=== PATIENT | female | born 1995 | race Two or more races ===

== ENCOUNTER 2024-03-30 05:55 | Day surgery (SDC) | payer MEDICAID ==
[2024-03-28 15:11] LABS: Basophils # (auto) 0.1 10 ^3/uL (0-0.2); Basophils % (auto) 0.4 % (0.0-2.0); Eosinophils # (auto) 0.2 10 ^3/uL (0-0.8); Eosinophils % (auto) 1.7 % (0.0-7.0); Hematocrit 41.1 % (36.0-46.0); Hemoglobin 13.7 g/dL (12.2-16.2); Lymphocytes # (auto) 2.3 10 ^3/uL (0.4-5.4); Mean Corpuscular Hemoglobin 30.9 pg (28.0-32.0); Mean Corpuscular Hgb Conc. 33.3 g/dL (32.0-36.0); Mean Corpuscular Volume 92.8 fL (80.0-100.0); Monocytes # (auto) 0.8 10 ^3/uL (0-1.3); Monocytes % (auto) 6.5 % (0.0-12.0); Neutrophils # (auto) 8.8 10 ^3/uL (1.6-8.6); Neutrophils % (auto) 72.4 % (37.0-80.0); Nucleated Red Blood Cells % 0.1 %; Red Blood Cells 4.43 10^6/uL (4.0-5.20); Red Cell Distribution Width 13.5 % (11.8-14.3); White Blood Cell 12.1 10^3/uL (4.4-10.8)
[2024-03-28 15:24] LABS: Urine Bacteria FEW /hpf (None Seen); Urine Blood 1+ /uL (Negative); Urine Clarity Ex.Turbid (Clear); Urine Color Light-Orange (Yellow); Urine Hyaline Cast FEW /lpf (0 - 2); Urine Mucus FEW (None Seen); Urine Protein, UAD 1+ (Negative); Urine Specific Gravity 1.023 (1.001-1.035); Urine Urobilinogen Normal (Negative); Urine WBC 126 /hpf (0 - 5); Urine WBC Clumps PRESENT /hpf (None Seen)
[2024-03-28 15:27] LABS: INR 1.03 (0.9-1.15); Partial Thromboplastin Time 29.3 SEC (24.5-34.5); Prothrombin Time 10.9 sec (9.3-11.8)
[2024-03-28 15:38] LABS: Alanine Aminotransferase 14 U/L (7-40); Albumin 4.8 g/dL (3.2-4.8); Alkaline Phosphatase 67 U/L (46-116); Anion Gap 6 (5-15); Aspartate Aminotransferase 9 U/L (13-40); BUN/Creatinine Ratio 11.3 (10.0-20.0); Bilirubin, Total 0.6 mg/dL (0.2-1.0); Blood Urea Nitrogen 8 mg/dL (9-23); Calcium 10.4 mg/dL (8.7-10.4); Carbon Dioxide 27 mmol/L (20-30); Chloride 106 mmol/L (98-107); Glucose 86 mg/dL (74-106); Potassium 4.6 mmol/L (3.5-5.1); Sodium 139 mmol/L (136-145); Total Protein 7.6 g/dL (5.7-8.2)
[~2024-03-30] VITALS: Ht 165.1 cm; Wt 85.3 kg
[2024-03-30] MEDS: BUPIVACAINE HCL 0.25% P/F 10 ML VIAL ONE (06:42)
[2024-03-30] MEDS: LIDOCAINE W/ EPINEPHRINE 1% 20ML VIAL ONE (06:42)
[2024-03-30] MEDS: ceFAZolin 1GM/50ML 50 ML IV ONE (06:48)
[2024-03-30] MEDS ORDERED: fentaNYL CITRATE 100 MCG/2 ML VL ONE (06:56)
[2024-03-30] MEDS ORDERED: PROPOFOL 10 MG/ML 20 ML IV ONE (06:56)
[2024-03-30] MEDS: SUCCINYLCHOLINE CHLORIDE 20 MG/ML 10ML VIAL IV ONE (07:07)
[2024-03-30] MEDS ORDERED: ePHEDrine SULFATE 50 MG/ML AMP ONE (07:35)
[2024-03-30] MEDS ORDERED: DexAMETHasone SOD PHOS 10MG/1ML VIAL INJ ONE (07:37)
[2024-03-30] MEDS ORDERED: ONDANSETRON HCL 4 MG/2 ML VIAL ONE ×2 (07:37→08:54)
[2024-03-30] MEDS ORDERED: MEPERIDINE HCL (50 MG/ML) 1 ML VIAL ONE (07:42)
[2024-03-30 08:22] VITALS: PULSE 77; RESP 12; TEMP 97.5; O2SAT 88
[2024-03-30] MEDS ORDERED: HYDROmorphone HCL 2 MG/ML VL/or syr IV PRN (08:30)
[2024-03-30] MEDS ORDERED: MEPERIDINE HCL (25 MG/ML) 1ML VIAL IV PRN (08:30)
[2024-03-30 08:42] VITALS: O2SAT 96
[2024-03-30] MEDS: ONDANSETRON HCL 4 MG/2 ML VIAL IV ONE (08:50)
[2024-03-30 09:20] VITALS: BP 96/75; PULSE 74; RESP 12; O2SAT 96
== END 2024-03-30 09:25 | disposition home or self-care (01) ==
LOC: SUR 05:55
PROVIDERS: ATTEND Surgery
DX: L72.3 Sebaceous cyst (principal); E66.01 Morbid (severe) obesity due to excess calories; F17.210 Nicotine dependence, cigarettes, uncomplicated; Z98.890 Other specified postprocedural states; Z68.32 Body mass index [BMI] 32.0-32.9, adult
CPT/HCPCS: 11402; 11422; 36415; 80053; 81001; 84702; 85025; 85610; 85730; 86850; 86900; 86901; 88305; J0330; J0690; J1100; J2175; J2405; J2704; J3010; J3490